=== PATIENT | male | born 2005 | race Caucasian/White ===

== ENCOUNTER 2024-09-27 10:53 | Emergency (ER) | payer BC, SELFPAY ==
[2024-09-27 10:56] VITALS: BP 143/93
--- NOTE | 2024-09-27 11:23 | ED.GENMED ---
History of Present Illness
General
Chief Complaint: Abdominal Pain
Time Seen by Provider: 09/27/24 11:02
History of Present Illness
History of Present Illness:
19-year-old male without significant past medical history presenting to the emergency department for SI. Patient reports in the summer he used some mushrooms he reports that he had a 'bad trip '. Since then, he has been reliving the memories from
the bad trip. He reports in the past several weeks he has been having SI without plan or suicidal intent. He has worsening anxiety, difficulty sleeping. Also has been having GI distress, some diarrhea, generalized abdominal discomfort. Mother
notes some family history of depression, otherwise no mental health issues. Patient does have increased stress with school, hopelessness, difficulty keeping up with his schoolwork. Denies auditory or visual hallucinations, however this morning
when he woke up he saw something abnormal in his pillow which he describes as teeth. Mother notes that he has seen a psychiatrist before, was placed on Wellbutrin, however stopped taking it because he did not like the way it made him felt. Denies
any drug or alcohol abuse. Denies additional acute medical
Phy Exam
Physical Exam
Physical Exam:
General: Well-appearing, no clinical signs of dehydration, nontoxic and in no acute distress
HEENT: protecting airway
Neck: appears supple
CV: Normal heart rate
Resp: No accessory muscle use, no increased work of breathing
Abd: Soft and non-distended, no tenderness to palpation
Extremities: No deformities, no swelling
Neuro: alert, no focal neurologic deficit
: deferred
Rectal: deferred
Psych: Normal affect
Skin: Intact
Course
Orders/Labs/Results
Orders:
Orders
09/27/24 11:21
Crisis Consult Urgent
Reason for Consult: SI
09/27/24 11:35
Complete Blood Count/With Diff Urgent
Comprehensive Metabolic Panel Urgent
Lipase Urgent
Urine Drug Abuse Screen Urgent
Date Specimen was Collected: 09/27/24
Time Specimen was Collected: 11:34
Abnormal Lab Results
09/27/24
11:35
MPV 11.8 H fL
(7.4-10.4)
Absolute Neuts (auto) 6.9 H 10^3/uL
(1.4-6.5)
Absolute Lymphs (auto) 1.0 L 10^3/uL
(1.2-3.4)
Neutrophils % 81.3 H %
(42.2-75.2)
Lymphocytes % 11.5 L %
(20.5-51.1)
Glucose 112 H mg/dl
(70-99)
09/27/24 11:35
09/27/24 11:35
Vital Signs
Initial and Last Documented VS:
Initial Vital Signs
Temp Pulse Resp BP Pulse Ox
98.0 F 95 16 143/93 98
09/27/24 10:56 09/27/24 10:56 09/27/24 10:56 09/27/24 10:56 09/27/24 10:56
Last Documented Vital Signs
Temp Pulse Resp BP Pulse Ox
98.0 F 95 16 143/93 98
09/27/24 10:56 09/27/24 10:56 09/27/24 10:56 09/27/24 10:56 09/27/24 10:56
MDM/Problems Addressed
MDM/Problems Addressed:
19-year-old male presenting to the emergency department for anxiety, depression, SI. Vital signs are normal.
On exam patient is resting comfortably, no acute distress or discomfort. Patient admits to SI for the past several weeks, however no active plan. Suspect underlying depression and anxiety. At this time he does not appear to be a threat to himself
or others, however, will consult with crisis for likely need of outpatient resources. Regarding GI symptoms, do suspect related to mental health issues. Possible underlying GERD, notes worsening pain with foods such as coffee. Family requesting
blood work, will screen, however no indication for advanced imaging.
13:40 - Labs are unremarkable. Patient remains hemodynamically stable. Per crisis, outpatient treatment recommended. Feel reasonable. Feel stable for discharge. Will start patient on PPI for suspected GERD. Return precautions discussed to
patient and parents at bedside who verbalized understanding.
*Critical Care Note
Total Time (30-74mins, 75-104mins- exclusive of procedures): Not Applicable
ED Attending Note
-
Portions of this chart may have been created with voice recognition software.� Occasional wrong word or��sound alike� substitutions may have occurred due to the inherent limitations of voice recognition software.
Discharge Plan
Departure
Referrals:
UNKNOWN - PT DOES,NOT KNOW [Family Provider] -
Interventions
Interventions:
*Risk Screen - Suicide Last Done: 09/27/24 10:56
*General Assessment Last Done: 09/27/24 11:33
*Neglect/Abuse Screening Last Done: 09/27/24 10:56
ED- Fall Risk Assessment Last Done: 09/27/24 11:33
*ED COVID-19 Vaccine History Last Done: 09/27/24 11:33
OH-Gokobx-Fuxlupxgia Assessment Last Done: 09/27/24 11:33
Discharge Date and Time
Print Language: BRUNEIAN
[2024-09-27 11:32] VITALS: BMI 28.6
[2024-09-27 11:43] LABS: % Basophils 0.2 % (0-2); % Eosinophils 0.1 % (0-6); % Immature Granulocytes 0.4 % (0-0.5); % Lymphocytes 11.5 % (20.5-51.1); % Monocytes 6.5 % (1.7-9.3); % Neutrophils 81.3 % (42.2-75.2); Absolute Monocytes 0.6 10^3/uL (0.1-0.6); Absolute Neutrophils 6.9 10^3/uL (1.4-6.5); Hematocrit 44.6 % (39.0-52.0); Hemoglobin 15.5 g/dL (13.0-18.0); Mean Corp Hgb Conc. 34.8 g/dL (33.0-37.0); Mean Corpuscular Hgb 28.8 pg (27.0-31.0); Mean Corpuscular Volume 82.9 fL (80.0-94.0); Mean Platelet Volume 11.8 fL (7.4-10.4); Nucleated Red Blood Cells % 0 % (-); Platelet Count 154 10^3/uL (130-400); Red Blood Cell Count 5.38 10^6/uL (4.70-6.10); Red Cell Dist. Width 13.5 % (11.5-14.5); White Blood Cell Count 8.4 10^3/uL (4.8-10.8)
[2024-09-27 11:56] LABS: ALT (SGPT) 20 U/L (0-50); AST (SGOT) 30 U/L (17-59); Albumin 4.8 g/dl (3.5-5.0); Alkaline Phosphatase 67 U/L (38-126); Blood Urea Nitrogen 15 mg/dl (9-20); Calcium 9.9 mg/dl (8.4-10.2); Carbon Dioxide 26 mmol/L (22-30); Chloride 104 mmol/L (98-107); Estimated Creatinine Clearance 106 ml/min; Glucose 112 mg/dl (70-99); Lipase 125 U/L (23-300); Potassium 4.2 mmol/L (3.5-5.1); Sodium 141 mmol/L (135-145); Total Bilirubin 0.6 mg/dl (0.2-1.3); Total Protein 7.1 g/dl (6.3-8.2); eGFR > 60.00
[2024-09-27 11:57] LABS: Amphetamines Negative (Negative); Barbiturates Negative (Negative); Benzodiazepines Negative (Negative); Buprenorphine Negative (Negative); Cocaine Negative (Negative); Marijuana Negative (Negative); Methadone Negative (Negative); Methamphetamines Negative (Negative); Opiates Negative (Negative); Phencyclidine Negative (Negative); Tricyclic Antidepressants Negative (Negative)
== END 2024-09-27 13:53 | disposition home or self-care (01) ==
LOC: EMR 10:53
PROVIDERS: EMERGENCY PHYSICIAN Student in an Organized Health Care Education/Training Program
DX: F32.A Depression, unspecified (principal); R45.851 Suicidal ideations; K30 Functional dyspepsia
CPT/HCPCS: 99283; 80053; 80306; 83690; 85025

== ENCOUNTER 2024-09-28 13:35 | Emergency (ER) | payer BC, SELFPAY ==
[2024-09-28 13:37] VITALS: BP 154/86
--- NOTE | 2024-09-28 13:45 | ED.GENMED ---
History of Present Illness
General
Chief Complaint: Crisis Evaluation
Source: patient
Exam Limitations: none
Time Seen by Provider: 09/28/24 13:44
Nursing documentation reviewed up to this point in time: agreed with
History of Present Illness
History of Present Illness:
This is a 19 y/o male presenting to the emergency department today with suicidal ideation. Patient states that this started around 3 weeks ago. Patient does have a prior history of depression and has been on Wellbutrin in the past but it has not
helped. Patient states that he was seen here yesterday for same issue but he states that overnight and into today, his feelings of suicidal ideation became more severe and he started to formulate a plan. Today he seeks inpatient treatment for his
mental health. He does note occasional visual hallucinations at night, states that the clock will appear like it is moving, states that he will see teeth on his bed pillow. Patient states that these feelings have affected his work at school.
Patient currently takes no medication other than Pepcid for intermittent abdominal discomfort. Patient states that the abdominal pain has been going on for a few weeks and states that it is worse with certain meals. He has tried Pepcid but does
not help. Patient believes it comes on when he gets more anxious. He denies chest pain, shortness of breath, fevers or chills, nausea or vomiting, diarrhea or constipation.
Review of Systems
Review of Systems
All Other Systems: ROS reviewed and negative except as documented in HPI and ROS
Phy Exam
Physical Exam
Physical Exam:
General: Patient is well appearing and in no acute distress; non-toxic
Skin: Warm and dry, no rashes or lesions
Head: Normocephalic, atraumatic
Eyes: Sclera non-icteric. EOMs intact. PERRLA.
Cardiac: Regular rate and rhythm, no murmurs
Peripheral Vascular: No lower extremity swelling or edema
Pulm: Normal respiratory effort, no wheezes, rales, or rhonchi
Abdomen: No abdominal tenderness to palpation
Neuro: CN II-XII intact, no focal neurologic deficits.
Psychiatric: Appropriate mood and affect.
Course
Orders/Labs/Results
Orders:
Orders
09/28/24 14:05
Crisis Consult Urgent
Reason for Consult: suicidal ideation
Comment: seeking inpatient treatment
09/28/24 15:02
Urine Drug Abuse Screen Urgent
Date Specimen was Collected: 09/28/24
Time Specimen was Collected: 15:00
09/28/24 17:45
Telemedicine Psychiatry Conslt Urgent
Service Line: Psychiatric
Nursing Station
Ordering Physician: Tere Bajwa
Referring Physician
Cart Name: Nasir
Psych Consult Reason: Suspect self/harm others
Psychiatry Consult Location: ED
Patient Needs to be Seen Emergently: Yes
Patient Admitted for NonPsychiatric Reasons: No
Patient in Restraints: No
Patient Requires a Stave Block Splitter: No
Patient's Legal Status is Involuntary: Yes
Patient Requires a Guardian: No
Vital Signs
Initial and Last Documented VS:
Initial Vital Signs
Temp Pulse Resp BP Pulse Ox
99 F 66 16 154/86 99
09/28/24 13:37 09/28/24 13:37 09/28/24 13:37 09/28/24 13:37 09/28/24 13:37
Last Documented Vital Signs
Temp Pulse Resp BP Pulse Ox
99 F 66 16 154/86 99
09/28/24 13:37 09/28/24 13:37 09/28/24 13:37 09/28/24 13:37 09/28/24 13:37
MDM/Problems Addressed
Differential Diagnosis Includes:
major depressive disorder, schizoaffective disorder, major depressive disorder with psychotic features, generalized anxiety disorder
MDM/Problems Addressed:
This is a 19 y/o male presenting to the emergency department today with suicidal ideation. Patient states that this started around 3 weeks ago. Patient does have a prior history of depression and has been on Wellbutrin in the past but it has not
helped. Patient states that this morning, his suicidal ideations gotten worse and now he has a plan. Patient is seeking inpatient treatment. Patient does note abdominal pain associated with anxiety but he was seen in our ER yesterday and did get
blood work including lipase which was unremarkable. Today he has no abdominal tenderness on exam. I feel that this intermittent pain can be worked up as an outpatient and do not feel that this would keep him from being medically cleared for
inpatient psychiatric treatment. Patient accepted by facility and will be transferred later today
On reassessment, patient now declining inpatient treatment. Patient states that he feels better and feels like he is not need inpatient treatment, he no longer has suicidal ideations. Because of this concern, consult was placed for telepsych.
Patient was evaluated by telepsych and was diagnosed with major depressive disorder severe and anxiety disorder. He was provided with outpatient resources, they state that they will set up this. Parents are living with patient and will keep an eye
on him. Telepsych recommended hydroxyzine as needed for anxiety. Patient stable for discharge.
Chronic conditions affecting care:
Anxiety, depression
*Pulse Oximetry
Patient hypoxic: no
*Critical Care Note
Total Time (30-74mins, 75-104mins- exclusive of procedures): Not Applicable
Data Reviewed
Review of Other/Old Records Reveals: Records (reviewed ER physician documentation from 09/27/24 for depression with suicidal ideation, patient set up with outpatient treatment, patient discharged to care of family )
Source: patient and records
Patient Management
Escalation/DeEscalation of care consider admission/obs:
Patient stable for discharge, patient denies suicidal ideation, he denies a plan to harm himself.
ED Attending Note
-
Portions of this chart may have been created with voice recognition software.� Occasional wrong word or��sound alike� substitutions may have occurred due to the inherent limitations of voice recognition software.
Discharge Plan
Departure
Patient Disposition: Home (Routine Discharge)
Date of Disposition: 09/28/24
Time of Disposition: 20:44
Patient with high blood pressure during this ER visit?: Yes
Condition: Good
Discharge Problem:
Major depressive disorder, Suicidal ideations, Anxiety
Instructions: Anxiety, Adult (DC), BLOOD PRESSURE
Prescriptions:
New
hydroxyzine HCl 25 mg tablet
25 mg PO BID PRN (Reason: anxiety) Qty: 10 0RF
No Action
famotidine [Pepcid] 20 mg tablet
20 mg PO DAILY 30 Days Qty: 30 0RF
Referrals:
Johnathan Vincent MD [Active] - Call in 1-3 days for appt
UNKNOWN - PT DOES,NOT KNOW [Family Provider] -
Activity Restrictions/Additional Instructions:
Please return to the emergency department should you experience chest pain, shortness of breath, suicidal or homicidal ideation, hallucinations or any other signs or symptoms concerning to you.
Please make an appointment to establish care with outpatient psychiatrist.
Interventions
Interventions:
*Risk Screen - Suicide Last Done: 09/28/24 13:37
*General Assessment Last Done: 09/28/24 13:37
*Neglect/Abuse Screening Last Done: 09/28/24 13:37
ED- Fall Risk Assessment Last Done: 09/28/24 14:00
*ED COVID-19 Vaccine History Last Done: 09/28/24 13:57
*Nursing Disposition Last Done: 09/28/24 21:35
ED-Psychological Assessment Last Done: 09/28/24 14:00
Discharge Date and Time
Discharge Date/Time: 09/28/24 21:36
Print Language: TANZANIAN
[2024-09-28 13:57] VITALS: BMI 28.4
[2024-09-28 15:32] LABS: Amphetamines Negative (Negative); Barbiturates Negative (Negative); Benzodiazepines Negative (Negative); Buprenorphine Negative (Negative); Cocaine Negative (Negative); Marijuana Negative (Negative); Methadone Negative (Negative); Methamphetamines Negative (Negative); Opiates Negative (Negative); Phencyclidine Negative (Negative); Tricyclic Antidepressants Negative (Negative)
== END 2024-09-28 21:36 | disposition home or self-care (01) ==
LOC: EMR 13:35
PROVIDERS: Physician Assistant; EMERGENCY PHYSICIAN Emergency Medicine
DX: F32.2 Major depressive disorder, single episode, severe without psychotic features (principal); F41.9 Anxiety disorder, unspecified; R45.851 Suicidal ideations
CPT/HCPCS: 99283; 80306